=== PATIENT | female | born 1950 | race Caucasian/White ===

== ENCOUNTER 2023-01-10 05:52 | Observation (INO) | payer MEDICARE ==
[2023-01-10] MEDS ORDERED: PROPOFOL 20 ML ONE (06:44)
[2023-01-10] MEDS ORDERED: PHENYLEPHRINE-NS 100 MCG/ML 10 ML SYRINGE ONE ×2 (06:44→08:16)
[2023-01-10] MEDS ORDERED: Fentanyl 100 MCG/2 ML VIAL ONE ×4 (06:44→09:47)
[2023-01-10] MEDS ORDERED: Ondansetron PF 4 MG/2 ML Vial ONE (06:44)
[2023-01-10] MEDS ORDERED: CEFAZOLIN 1 GM VIAL ONE (07:00)
[2023-01-10] MEDS ORDERED: Famotidine/PF 20 mg/2ml Vial ONE (07:02)
[2023-01-10] MEDS ORDERED: Lidocaine 2% PF 5 ML VIAL ONE (07:04)
[2023-01-10] MEDS ORDERED: Phenylephrine 10 MG/ML VIAL ONE (07:17)
[2023-01-10] MEDS ORDERED: Lidocaine 1% w/Epinephrine 1:100K 20 ML VIAL ONE (07:34)
[2023-01-10] MEDS ORDERED: Acetaminophen 325 MG TAB PO PRN (08:17)
[2023-01-10] MEDS ORDERED: Ondansetron ODT 4 MG TAB PO PRN (08:17)
[2023-01-10] MEDS ORDERED: HYDROcodone/Acetaminophen 7.5/325 mg Tablet PO PRN (08:17)
[2023-01-10] MEDS ORDERED: Alendronate Sodium 70 mg Tablet PO SCH (08:30)
[2023-01-10] MEDS: HYDROcodone/Acetaminophen 5/325 mg Tablet PO PRN ×2 (12:58→17:36)
[2023-01-10] MEDS ORDERED: Hydrochlorothiazide 25 MG TAB PO SCH (13:00)
[2023-01-10] MEDS ORDERED: Lisinopril 20 MG TAB PO SCH (13:00)
[2023-01-10] MEDS ORDERED: Topiramate 100 MG TAB PO SCH (21:00)
[2023-01-10] MEDS ORDERED: Ferrous Sulfate 325 MG TAB PO SCH (21:00)
[2023-01-10] MEDS ORDERED: Anastrozole 1 MG TAB PO SCH (21:00)
[2023-01-10] MEDS ORDERED: Potassium Chloride 10 MEQ TAB PO SCH (21:00)
[2023-01-10] MEDS: Calcitriol 0.25 MCG CAP PO SCH (21:51)
[2023-01-11] MEDS: HYDROcodone/Acetaminophen 5/325 mg Tablet PO PRN ×2 (05:14→09:44)
[2023-01-11] MEDS ORDERED: Potassium Chloride 10 MEQ TAB PO SCH (08:00)
[2023-01-11] MEDS ORDERED: Hydrochlorothiazide 25 MG TAB PO SCH (09:00)
[2023-01-11] MEDS ORDERED: Calcium Carbonate 500 MG ChewTAB PO SCH (09:00)
[2023-01-11] MEDS ORDERED: Lisinopril 20 MG TAB PO SCH (09:00)
[2023-01-11] MEDS: Calcitriol 0.25 MCG CAP PO SCH (09:30)
[2023-01-11 12:31] VITALS: BP 109/58; TEMP 98.3
[2023-01-11 13:01] LABS: Calcium 9.6 mg/dL (7.8-10.44)
[2023-01-11 13:35] VITALS: BMI 19.9
== END 2023-01-11 13:50 | disposition home or self-care (01) ==
LOC: CSHSDC 05:52 → CSHTELE 12:17
PROVIDERS: ADMIT Otolaryngology Plastic Surgery within the Head & Neck; ATTEND Otolaryngology Plastic Surgery within the Head & Neck
PROC: 0GTK0ZZ Resection of Thyroid Gland, Open Approach (ICD-10-PCS; principal; 2023-01-10)
DX: E04.2 Nontoxic multinodular goiter (principal); D22.4 Melanocytic nevi of scalp and neck; G43.909 Migraine, unspecified, not intractable, without status migrainosus; E78.5 Hyperlipidemia, unspecified; I10 Essential (primary) hypertension; Z88.2 Allergy status to sulfonamides; Z79.899 Other long term (current) drug therapy
CPT/HCPCS: 36415; 82310; 82330; 83970; 88305; 88307; 94760; J0690; J2001; J2370; J2405; J2704; J3010; S0028